=== PATIENT | female | born 1975 | race African-American/Black ===

== ENCOUNTER 2016-06-20 15:17 | Emergency (ER) ==
--- NOTE | 2016-06-20 16:07 | ED EKG INTERP ---
EKG Interpretation - EKG Time of EKG reading by physician:: 15:35 EKG Read and Signed by:: Kanu Whitaker EKG Interpretation (*Must complete 3 of following elements*): Abnormal Rate: 94 Rhythm: nsr Rattan: normal QRS: normal VT Interval: prolonged Comments: anterior infarct Attestation - Scribe Verification/Attestation Scribe:: Lula Obrien Acting as Scribe for:: Kanu Whitaker Scribe documention review:: This chart was documented by a scribe and accurately reflects the service the provider performed and the decisions made by the provider. Physician Attestation - Physician Attestation I, the provider, attest to the following statement:: Kanu Whitaker Physician documentation Attestation:: This documentation recorded by the scribe accurately reflects the service I personally performed and the decisions made by me.
--- NOTE | 2016-06-20 16:21 | PROVIDER DOCUMENTATION ---
HPI-Syncope/Dizziness - General Source: patient, family () - History of Present Illness-Syncope/Dizzy Prior Episodes: reports: multiple episodes today ("fainting") Onset/Duration: reports: this morning Timing: reports: still present Position/Activity at time of episode: reports: activity Symptoms prior to episode: reports: lightheaded (dizzy), chest pain (this morn- not on exam), rapid heart beat ("palpataions"), other (blurred vision) Context: reports: felt faint, almost passed out. denies: lost consciousness, became unresponsive, seizure activity observed Loss of Consciousness: no loss of consciousness Location of injury. (If syncope resulted in an injury.): reports: none Current Symptoms: reports: chest pain, short of breath, dizzy, blurred vision. denies: fever, abdominal pain Recently Seen Here or By Another Healthcare Provider: No - Dizziness Severity in ED: reports: mild Dizziness Related Current/Associated Symptoms: reports: dizzy, blurred vision, other (palpations) Any recent trauma/injury?: reports: none Modifying Factors: improves with: nothing Patient usually:: reports: walks without assistance <Lula Obrien - Last Filed: 06/20/16 17:50> <Nando Marie - Last Filed: 06/20/16 19:17> - General Chief Complaint: Syncope Stated Complaint: BLURRED VISION,CHEST PALPITATION Time Seen by Provider: 06/20/16 16:06 Allergies/Adverse Reactions: Patient Allergies Allergy/AdvReac Type Severity Reaction Status Date / Time morphine AdvReac Mild ITCHING Verified 06/20/16 15:40 Home Medications: Home Medication List Medication Instructions Recorded Confirmed Last Taken Type Omeprazole [Prilosec] 20 mg PO DAILY 02/08/13 06/20/16 06/20/16 07:00 History LISINOpril/HCTZ [Prinzide 2 each PO DAILY #60 tablet 06/20/16 Unknown Rx 20/12.5MG] Lisinopril/Hydrochlorothiazide 1 each PO DAILY 06/20/16 06/20/16 06/20/16 07:00 History [Lisinopril-Hctz 20-12.5 mg Tab] - History of Present Illness-Syncope/Dizzy Nature of Presenting Problem: 41 y/o F presents to ED cc of syncopal episodes, blurred vision, heart palpations , some sob and cp. Pt denies any CP/SOB on exam but states she had episodes this morn. Pt states she has HTN and takes lisinopril but states she has been taking her self off the medication x 2 wks now. Pt is alert and oriented x 3. Father is at bedside and states they have hx of NV/HTN in family . (Lula Obrien) Review of Systems - Adult - REVIEW OF SYSTEMS - ADULT Constitutional: denies: chills, fever Ears, Nose, Mouth & Throat: denies: ear pain, throat pain Cardiovascular: reports: chest pain, palpitations Respiratory: reports: shortness of breath. denies: cough Gastrointestinal: denies: abdominal pain, diarrhea, nausea, vomiting Genitourinary: denies: discharge, frequency Neurological: reports: dizziness/vertigo, syncope. denies: numbness, seizure <Lula Obrien - Last Filed: 06/20/16 17:50> Past History - Adult - PAST MEDICAL HISTORY-ADULT Review of Records: reports: Old Records Reviewed, Nursing Assessment Review Cardiovascular: reports: HTN - IMMUNIZATION STATUS Childhood Immunizations: See Nurse Assessment Flu Vaccine: See Nurse Assessment - FAMILY HISTORY Family History: HTN, other (NV ) - SOCIAL HISTORY Smoking: less than 1 pack/day Provider spent 3-5 mins advising pt. on dangers of tobacco.: Discussed manners to quit use, and f/u contacts for add'l counseling. Substance Use: alcohol Alcohol Use Frequency: occasionally Number of drinks per typical drinking period:: 3-4 drinks Living Situation: family <Lula Obrien - Last Filed: 06/20/16 17:50> Physical Exam-General - PHYSICAL EXAM-ADULT Initial Vital Signs Reviewed: Yes - CONSTITUTIONAL General Appearance: appears well, alert, no apparent distress, obese - EYES Eyes: pink conjunctivae, fundi clear, no AV nicking - HEAD, EARS, NOSE, MOUTH & THROAT HENMT: normocephalic/atraumatic, moist mucous membranes, normal ENT inspection - NECK Neck: non-tender, full range of motion - RESPIRATORY Respiratory: chest non-tender, lungs clear, normal breath sounds - CARDIOVASCULAR Cardiovascular: normal peripheral pulses, no edema, tachycardia - GASTROINTESTINAL (ABDOMEN) Abdominal Exam: normal bowel sounds, non tender, soft - LYMPHATIC Lymphatic: no adenopathy - MUSCULOSKELETAL Back Exam: normal inspection, no CVA tenderness, no vertebral tenderness Extremity: normal range of motion, non-tender, normal gait - SKIN Integumentary: normal color, normal turgor, warm/dry - 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, grossly normal, no motor/sensory deficits - PSYCHIATRIC Psych/Mental Status: normal mood/affect, normal thought content, normal thought process, oriented x 3 <Lula Obrien - Last Filed: 06/20/16 17:50> Progress - CHANGE OF SHIFT REPORT (ED Provider) Report Given and Care Transferred to:: Time of Transfer: 18:00 Items Pending: Labs, CT/MRI Results Tentative Impression of Patient: stable <Lula Obrien - Last Filed: 06/20/16 17:50> <Nando Marie - Last Filed: 06/20/16 19:17> - PLAN OF CARE/RESULTS Progress/Plan/Lab Results: PLAN: LABS , CHEST XRAY, HEAD CT , MONITOR/TREAT HYPERTENSION PT AND PT FATHER VERBALLY UNDERSTANDS Laboratory Tests 06/20/16 06/20/16 06/20/16 15:44 15:44 15:44 WBC 11.79 H RBC 5.01 Hgb 9.1 L Hct 30.4 L MCV 60.7 L MCH 18.2 L MCHC 29.9 L RDW Std Deviation 19.7 H Plt Count 870 H MPV 9.0 Immature Gran % (Auto) 0.5 Neut % (Auto) 66.7 Lymph % (Auto) 19.2 L [place] % (Auto) 12.8 H Eos % (Auto) 0.4 Baso % (Auto) 0.4 Immature Gran # (Auto) 0.06 H Neut # (Auto) 7.86 H Lymph # (Auto) 2.26 [place] # (Auto) 1.51 H Eos # (Auto) 0.05 Baso # (Auto) 0.05 Segmented Neutrophils 70 Band Neutrophils 1 Lymphocytes 20 L Monocytes 6 Nucleated RBCs 1 H Atypical Lymphocytes 3.0 Hypochromia 3+ Anisocytosis 3+ Microcytosis 3+ Target Cells OCCASIONAL PT INR PTT (Actin FS) Sodium 133 L Potassium 4.1 Chloride 97 L Carbon Dioxide 22 L Anion Gap 14 BUN 8 Creatinine 0.7 Estimated GFR/1.73 m2 > 60 BUN/Creatinine Ratio 11 Glucose 108 H Calculated Osmolality 265 Calcium 9.3 Magnesium 1.8 Total Bilirubin 0.30 AST 20 ALT 14 Alkaline Phosphatase 58 Creatine Kinase 77 Troponin T Sxs-G-Xqhtlyunnkj Pept 113 Total Protein 7.5 Albumin 4.0 Globulin 3.5 Albumin/Globulin Ratio 1.1 06/20/16 06/20/16 15:44 15:44 WBC RBC Hgb Hct MCV MCH MCHC RDW Std Deviation Plt Count MPV Immature Gran % (Auto) Neut % (Auto) Lymph % (Auto) [place] % (Auto) Eos % (Auto) Baso % (Auto) Immature Gran # (Auto) Neut # (Auto) Lymph # (Auto) [place] # (Auto) Eos # (Auto) Baso # (Auto) Segmented Neutrophils Band Neutrophils Lymphocytes Monocytes Nucleated RBCs Atypical Lymphocytes Hypochromia Anisocytosis Microcytosis Target Cells PT 10.8 INR 1.03 PTT (Actin FS) 24.5 Sodium Potassium Chloride Carbon Dioxide Anion Gap BUN Creatinine Estimated GFR/1.73 m2 BUN/Creatinine Ratio Glucose Calculated Osmolality Calcium Magnesium Total Bilirubin AST ALT Alkaline Phosphatase Creatine Kinase Troponin T < 0.010 [id number]-[id number] Pept Total Protein Albumin Globulin Albumin/Globulin Ratio Orders Category Date Time Status Cardiac Monitoring DIRECTED Care 06/20/16 15:25 Active Saline Loc NOW Care 06/20/16 15:25 Active CHEST-1 VIEW [RAD] Stat Exams 06/20/16 17:20 Ordered HEAD W/O CONTRAST [CT] Stat Exams 06/20/16 16:26 Ordered CBC WITH ELECTRONIC DIFF [HEME] Stat Lab 06/20/16 15:44 Completed CK PROFILE [SP CHEM] Stat Lab 06/20/16 15:44 Completed COMPREHENSIVE METABOLIC PANEL [CHEM] Stat Lab 06/20/16 15:44 Completed MAGNESIUM [CHEM] Stat Lab 06/20/16 15:44 Completed PRO B-NATRIURETIC PEPTIDE Stat Lab 06/20/16 15:44 Completed PROTIME WITH INR [COAG] Stat Lab 06/20/16 15:44 Completed PTT [COAG] Stat Lab 06/20/16 15:44 Completed TROPONIN T Stat Lab 06/20/16 15:44 Completed Clonidine [Catapres] Med 06/20/16 16:25 Discontinued 0.1 mg PO NOW ONE EKG [EKG] Stat Ther 06/20/16 15:25 Ordered Vital Signs - 24 hr 06/20/16 15:21 Temperature 98.2 F Pulse Rate 99 H Respiratory 18 Rate Blood Pressure 162/101 O2 Sat by Pulse 100 Oximetry (Lula Obrien) Departure - Departure Time of Disposition Order: 17:51 Certified Medical Emergency: Emergent <Lula Obrien - Last Filed: 06/20/16 17:50> - Departure Certified Medical Emergency: Emergent <Nando Marie - Last Filed: 06/20/16 19:17> - Departure DIAGNOSIS: Hypertension, uncontrolled Syncope Qualifiers: Syncope type: unspecified Qualified Code(s): R55 - Syncope and collapse Anemia Qualifiers: Anemia type: unspecified type Qualified Code(s): D64.9 - Anemia, unspecified Disposition: STILL A PATIENT 30 Condition: Stable Additional Instructions: take an iron pill every day, get a follow up visit in a month ED Follow Up Instructions: You have been treated by a care provider in the Emergency Department. These instructions are being provided to you so you can have an understanding of how to care for yourself upon discharge. Upon discharge from the Emergency Department, you are responsible for making arrangements for follow-up care by a physician of your choice. Take all prescribed medications as directed. Return to the Emergency Department immediately for any new or worsening symptoms. You may call the Physician Referral phone number at [phone] to obtain a list of Physicians who are taking new patients. Prescriptions: LISINOpril/HCTZ [Prinzide 20/12.5MG] 2 each PO DAILY #60 tablet Referrals: None,PCP [Primary Care Provider] - Attestation - Scribe Verification/Attestation Scribe:: Lula Obrien Acting as Scribe for:: Kanu Whitaker Scribe documention review:: This chart was documented by a scribe and accurately reflects the service the provider performed and the decisions made by the provider. - Scribe Verification/Attestation #2 Shift Change Time: 18:00 Scribe Name: Len Feliz Acting as Scribe for:: Nando Marie <Lula Obrien - Last Filed: 06/20/16 17:50> Physician Attestation - Physician Attestation I, the provider, attest to the following statement:: Kanu Whitaker Physician documentation Attestation:: This documentation recorded by the scribe accurately reflects the service I personally performed and the decisions made by me. <Lula Obrien - Last Filed: 06/20/16 17:50>
[2016-06-20] MEDS ORDERED: CATAPRES PO ONE (16:25)
[2016-06-20 17:02] LABS: BASO% 0.4 % (0.0-0.8); EOS# 0.05 X1000 (0.0-0.7); EOS% 0.4 % (0.0-10.0); HEMATOCRIT 30.4 % (37.0-47.0); HEMOGLOBIN 9.1 g/dL (12.0-16.0); IMM GRAN# 0.06 X1000 (0.0-0.04); IMM GRAN% 0.5 % (0.0-0.5); LYMPH# 2.26 X1000 (1.2-3.4); LYMPH% 19.2 % (20.5-51.1); MANUAL DIFF NEEDED? YES; MCH 18.2 PG (27-31); MCHC 29.9 g/dL (33-37); MCV 60.7 FL (81-99); MONO# 1.51 X1000 (0.11-0.59); MONO% 12.8 % (1.7-9.3); NEUT% 66.7 % (42.2-75.2); PLT 870 X1000 (130-400); RBC 5.01 XMIL (4.2-5.4)
[2016-06-20 17:11] LABS: AGAP 14; ALKALINE PHOSPHATASE 58 U/L (32-104); BUN 8 mg/dL (8-22); CALCIUM 9.3 mg/dL (8.8-10.2); CHLORIDE 97 mmol/L (98-107); CK PROFILE 77 U/L (24-173); COSMO 265; GOT 20 U/L (10-30); GPT 14 U/L (10-36); MAGNESIUM 1.8 mg/dL (1.5-2.7); POTASSIUM 4.1 mmol/L (3.5-5.1); SODIUM 133 mmol/L (136-145); TCO2 22 mmol/L (25-35); TOTAL PROTEIN 7.5 g/dL (6.3-8.3)
[2016-06-20 17:15] LABS: INR 1.03; PROTIME 10.8 Seconds (9.2-11.7); PTT 24.5 Seconds (22.0-36.0)
[2016-06-20 17:25] LABS: BANDS 1 % (0-1); LYMPHS 20 % (21-51); MONO 6 % (1-9); NRBC 1 % (0-0)
[2016-06-20 17:26] LABS: HYPOCHROM 3+; TARGET CELLS OCCASIONAL
[2016-06-20 19:25] VITALS: BP 168/101
--- NOTE | 2016-06-21 05:45 | EKG Report ---
Test Performed on : 06/20/2016 3:35:12 PM Test Reason : Chest Pain Blood Pressure : / mmHG Vent. Rate : 094 BPM Atrial Rate : 094 BPM P-R Int : 144 ms QRS Dur : 076 ms QT Int : 400 ms P-R-T Axes : 042 034 040 degrees QTc Int : 500 ms Normal sinus rhythm. Cannot rule out Anterior infarct , age undetermined Prolonged QT Abnormal ECG No previous ECGs available Unconfirmed Result
--- NOTE | 2016-06-21 07:28 | Diag Imaging Result Document ---
PROCEDURE NAME: HEAD W/O CONTRAST - 06/20/[address]: A CT dose reduction protocol was used. COMPARISON: None. FINDINGS: The ventricles and sulci are normal in size and contour. There is no mass, hemorrhage, or evidence of acute ischemia. The bony calvaria is intact. The visualized paranasal sinuses and mastoid air cells are clear. IMPRESSION: Negative head CT. MTDD
--- NOTE | 2016-06-21 10:15 | Diag Imaging Result Document ---
PROCEDURE NAME: CHEST-1 VIEW - 06/20/2016 SINGLE FRONTAL RADIOGRAPH OF THE CHEST: COMPARISON: None available. FINDINGS: The lungs are grossly clear. There is no discrete pleural fluid collection or evidence of pneumothorax. The cardiomediastinal silhouette and upper airway are grossly unremarkable. IMPRESSION: No evidence of acute chest pathology.
== END 2016-06-20 19:28 | disposition home or self-care (01) ==
LOC: ED 15:17
DX: D64.9 Anemia, unspecified (principal); R55 Syncope and collapse; I10 Essential (primary) hypertension; H53.8 Other visual disturbances; R00.2 Palpitations; R07.9 Chest pain, unspecified; R06.02 Shortness of breath; R00.0 Tachycardia, unspecified; E66.9 Obesity, unspecified; F17.210 Nicotine dependence, cigarettes, uncomplicated; Z71.6 Tobacco abuse counseling; Z79.899 Other long term (current) drug therapy; Z82.49 Family history of ischemic heart disease and other diseases of the circulatory system
CPT/HCPCS: 70450; 71010; 80053; 82550; 83735; 83880; 84484; 85025; 85610; 85730; 93005

== ENCOUNTER 2016-12-12 07:54 | Observation (INO) ==
[2016-12-12] MEDS ORDERED: NS 1,000 ML IV ONE (08:53)
[2016-12-12 09:20] LABS: MANUAL DIFF NEEDED? NO
[2016-12-12 09:25] LABS: BASO% 0.3 % (0.0-0.8); EOS# 0.03 X1000 (0.0-0.7); EOS% 0.2 % (0.0-10.0); HEMATOCRIT 31.5 % (37.0-47.0); HEMOGLOBIN 9.6 g/dL (12.0-16.0); IMM GRAN# 0.07 X1000 (0.0-0.04); IMM GRAN% 0.5 % (0.0-0.5); LYMPH% 15.2 % (20.5-51.1); MCH 20.6 PG (27-31); MCHC 30.5 g/dL (33-37); MCV 67.7 FL (81-99); MONO# 1.36 X1000 (0.11-0.59); MONO% 9.4 % (1.7-9.3); MPV 9.1 FL (7.4-10.4); NEUT% 74.4 % (42.2-75.2); PLT 582 X1000 (130-400); RBC 4.65 XMIL (4.2-5.4)
[2016-12-12 09:26] LABS: BILIRUBIN URINE NEGATIVE (NEGATIVE); BLOOD URINE NEGATIVE (NEGATIVE); CLARITY CLEAR (CLEAR); COLOR YELLOW; GLUCOSE URINE NEGATIVE (NEGATIVE); LEUKOCYTES URINE TRACE (NEGATIVE); NITRITE URINE NEGATIVE (NEGATIVE); PH URINE 6.5; PROTEIN URINE TRACE mg/dL (NEGATIVE); UROBILINOGEN URINE NORMAL
[2016-12-12 09:49] LABS: URINE CULTURE PL NEEDED? YES; URINE EPITHELIAL CELLS <10 /HPF (<10); URINE RBC <10 /HPF (<10); URINE SOURCE CLEAN CATCH; URINE WBC <10 /HPF (<10)
[2016-12-12 10:10] LABS: AGAP 13; ALBUMIN 4.1 g/dL (3.5-5.0); ALKALINE PHOSPHATASE 59 U/L (32-104); AMYLASE 35 U/L (20-200); BUN 7 mg/dL (8-22); CALCIUM 9.4 mg/dL (8.8-10.2); CHLORIDE 96 mmol/L (98-107); COSMO 269; GOT 14 U/L (10-30); GPT 10 U/L (10-36); LIPASE 51 U/L (13-60); POTASSIUM 3.2 mmol/L (3.5-5.1); SODIUM 135 mmol/L (136-145); TCO2 26 mmol/L (25-35); TOTAL BILIRUBIN < 0.15 mg/dL (0.20-1.00); TOTAL PROTEIN 8.4 g/dL (6.3-8.3)
[2016-12-12] MEDS ORDERED: MEFOXIN 1 GM/D5W 1 GM/50 ML IVPB IV ONE (10:43)
[2016-12-12] MEDS ORDERED: ZOSYN 3.375 GM in NS 50 ML IV ONE (10:45)
[2016-12-12] MEDS ORDERED: TORADOL IV PRN (13:23)
[2016-12-12] MEDS ORDERED: ZOFRAN IV PRN ×2 (13:23→15:11)
[2016-12-12] MEDS ORDERED: TYLENOL PO PRN (13:23)
[2016-12-12] MEDS ORDERED: DILAUDID IV PRN (15:11)
[2016-12-12] MEDS: LR 1,000 ML IV SCH ×2 (15:49→22:00)
[2016-12-12] MEDS: NORCO-7.5 PO PRN ×2 (16:02→21:59)
[2016-12-12] MEDS: ZOSYN 3.375 GM in NS 50 ML IV SCH (18:14)
[2016-12-13] MEDS: ZOSYN 3.375 GM in NS 50 ML IV SCH ×3 (00:31→11:36)
[2016-12-13] MEDS: LR 1,000 ML IV SCH (00:31)
[2016-12-13] MEDS: NORCO-7.5 PO PRN ×2 (08:31→11:00)
[2016-12-13] MEDS ORDERED: QUELICIN (DOSE) ONE (12:24)
[2016-12-13] MEDS ORDERED: XYLOCAINE-MPF 2% ONE (12:25)
[2016-12-13] MEDS ORDERED: DIPRIVAN 1% ONE (12:26)
[2016-12-13] MEDS ORDERED: FENTANYL ONE (12:27)
[2016-12-13] MEDS ORDERED: DECADRON ONE ×2 (12:28→14:03)
[2016-12-13] MEDS ORDERED: ZOFRAN ONE (12:28)
[2016-12-13] MEDS ORDERED: XYLOCAINE 1% ONE ×2 (13:35→13:37)
[2016-12-13] MEDS ORDERED: SODIUM CHLORIDE 0.9% ONE ×2 (13:35→13:37)
[2016-12-13] MEDS ORDERED: LR 1,000 ML ONE (13:35)
[2016-12-13] MEDS ORDERED: SENSORCAINE 0.5%-EPI 1:200,000 ONE (13:35)
[2016-12-13] MEDS ORDERED: VERSED ONE (13:41)
[2016-12-13] MEDS ORDERED: NEOSTIGMINE ONE (14:12)
[2016-12-13] MEDS ORDERED: ROBINUL ONE (14:12)
[2016-12-13] MEDS: DILAUDID ONE ×2 (15:20→15:29)
[2016-12-13 16:44] VITALS: BP 132/78
== END 2016-12-13 17:04 | disposition home or self-care (01) ==
LOC: 4N 07:54 → P.ED 07:54
PROVIDERS: ADMIT Surgery; ATTEND Surgery